=== PATIENT | female | born 1985 | race Caucasian/White ===

== ENCOUNTER 2017-11-24 18:08 | Inpatient (IN) | payer SELFPAY ==
[~2017-11-24] VITALS: Ht 154.9 cm; Wt 86.2 kg
[2017-11-24 20:22] LABS: BASOPHILS % 1.2 % (0.0-2.0); EOSINOPHILS % 0.4 % (0.0-5.0); HEMOGLOBIN. 11.2 g/dL (12.0-16.0); LYMPHOCYTES % 20.7 % (20.0-50.0); MEAN CORPUSCULAR HEMOGLOBIN 23.6 pg (28.0-32.0); MEAN CORPUSCULAR VOLUME 73.6 fL (81.0-99.0); MEAN PLATELET VOLUME 8.1 fl (7.4-10.4); MONOCYTES % 7.4 % (2.0-8.0); NEUTROPHILS % 70.3 % (40.0-76.0); PLATELET 355 x1000/uL (130-400); RED BLOOD CELL COUNT 4.76 mill/uL (4.2-5.4)
[2017-11-24 20:26] LABS: CHLORIDE 106 mEq/L (98-107)
[2017-11-24 20:29] LABS: ETHANOL BLOOD < 10 mg/dL
[2017-11-24 21:10] LABS: CLARITY URINE CLOUDY (CLEAR); COLOR URINE YELLOW (YELLOW); KETONES URINE 1+ (NEGATIVE); LEUKOCYTE ESTERASE URINE NEGATIVE (NEGATIVE); NITRITE URINE NEGATIVE (NEGATIVE); OCCULT BLOOD URINE 2+ (NEGATIVE); PH URINE 8.5 (4.5-8.0); PROTEIN URINE TRACE (NEGATIVE); SPECIFIC GRAVITY URINE 1.019 (1.005-1.030)
[2017-11-24 21:19] LABS: *BENZODIAZEPINES SCREEN URINE NEGATIVE (NEGATIVE); *COCAINE SCREEN URINE NEGATIVE (NEGATIVE); METHADONE URINE SCREEN NEGATIVE (NEGATIVE); OPIATES URINE SCREEN NEGATIVE (NEGATIVE)
[2017-11-24 21:20] LABS: CANNABINOID URINE SCREEN NEGATIVE (NEGATIVE); PHENCYCLIDINE URINE SCREEN NEGATIVE (NEGATIVE)
[2017-11-24 21:58] LABS: *AMPHETAMINES SCREEN URINE PRESUMTIVE POSITIVE (NEGATIVE); *BARBITURATES SCREEN URINE NEGATIVE (NEGATIVE)
[2017-11-25] VITALS (7 sets, daily range): BP systolic 96–110; BP diastolic 54–74
[2017-11-25] MEDS ORDERED: ASPIRIN 325MG TABLET PO ONE (00:30)
[2017-11-25] MEDS ORDERED: ACETAMINOPHEN 325MG TABLET PO PRN (07:00)
[2017-11-25] MEDS ORDERED: HYDROCODONE/ACETAMINOPHEN 5/325MG TABLET PO PRN (07:00)
[2017-11-25] MEDS ORDERED: CLONIDINE 0.1MG TABLET PO PRN (07:00)
[2017-11-25] MEDS ORDERED: ONDANSETRON 4MG ODT PO PRN (07:15)
[2017-11-25] MEDS: ASPIRIN 81MG EC TABLET PO SCH (08:43)
[2017-11-25] MEDS: AMLODIPINE 10MG TABLET PO SCH (08:44)
[2017-11-25] MEDS: DEXT 5%/0.45% NACL KCL 10MEQ/L 1,000 ML IV SCH (14:04)
[2017-11-26] VITALS: BP 108/60
[2017-11-26] MEDS: DEXT 5%/0.45% NACL KCL 10MEQ/L 1,000 ML IV SCH (03:37)
[2017-11-26 04:00] VITALS: BP 100/58
[2017-11-26 08:00] VITALS: BP 103/53
[2017-11-26] MEDS: AMLODIPINE 10MG TABLET PO SCH (09:00)
[2017-11-26] MEDS: ASPIRIN 81MG EC TABLET PO SCH (09:55)
[2017-11-26 09:56] LABS: BASOPHILS % 1.2 % (0.0-2.0); EOSINOPHILS % 2.8 % (0.0-5.0); HEMATOCRIT. 31.7 % (36.0-48.0); HEMOGLOBIN. 10.2 g/dL (12.0-16.0); LYMPHOCYTES % 28.5 % (20.0-50.0); MEAN CORPUSCULAR HEMOGLOBIN 23.7 pg (28.0-32.0); MEAN CORPUSCULAR VOLUME 73.8 fL (81.0-99.0); MEAN PLATELET VOLUME 8.2 fl (7.4-10.4); MONOCYTES % 8.4 % (2.0-8.0); NEUTROPHILS % 59.1 % (40.0-76.0); PLATELET 317 x1000/uL (130-400); RED BLOOD CELL COUNT 4.29 mill/uL (4.2-5.4); RED CELL DISTRIBUTION WIDTH 18.6 % (11.6-14.6)
[2017-11-26 10:35] LABS: CHLORIDE 108 mEq/L (98-107)
[2017-11-26 10:43] LABS: LDL CHOLESTEROL 96 mg/dL (5-100)
[2017-11-26 10:49] LABS: HDL CHOLESTEROL 51 mg/dL (40-59)
[2017-11-26 12:00] VITALS: BP 107/62
[2017-11-26 15:18] VITALS: BP 107/62
[2017-11-26 16:00] VITALS: BP 98/59
== END 2017-11-26 17:42 | disposition home or self-care (01) | DRG 58 ==
LOC: ER 18:38 → 6WST 11-25 00:20 → EDBEDREQTM 11-25 00:25 → EDBEDREQDT 11-25 00:25 → EDBEDREQ 11-25 00:25 → ENRESERV 11-25 01:47
PROVIDERS: ADMIT Hospitalist; ATTEND Hospitalist
DX: R20.2 Paresthesia of skin (principal); I10 Essential (primary) hypertension; R20.0 Anesthesia of skin; G43.909 Migraine, unspecified, not intractable, without status migrainosus; F15.10 Other stimulant abuse, uncomplicated; F41.0 Panic disorder [episodic paroxysmal anxiety]; F41.9 Anxiety disorder, unspecified
CPT/HCPCS: 36415; 70450; 70551; 71045; 80053; 80061; 80305; 81003; 81025; 85025; 93005; 99285; G0482; Q0162